=== PATIENT | male | born 1945 | race Caucasian/White ===

== ENCOUNTER 2018-09-24 11:58 | Inpatient (IN) | payer MEDICARE ==
[~2018-09-24] VITALS: Ht 190.5 cm; Wt 134.8 kg
[2018-10-04 06:44] VITALS: BP 114/73
== END 2018-10-04 12:00 | disposition home or self-care (01) | DRG 470 ==
LOC: ORIP 11:58 → UNDOADMIN 11:58 → ORIP 10-02 10:24 → 4NOR 10-02 14:35
PROVIDERS: ADMIT Orthopaedic Surgery; ATTEND Orthopaedic Surgery
PROC: 0SRB02A Replacement of Left Hip Joint with Metal on Polyethylene Synthetic Substitute, Uncemented, Open Approach (ICD-10-PCS; principal; 2018-10-02)
DX: M16.12 Unilateral primary osteoarthritis, left hip (principal); I10 Essential (primary) hypertension; I48.0 Paroxysmal atrial fibrillation; J31.0 Chronic rhinitis; I35.0 Nonrheumatic aortic (valve) stenosis; M43.10 Spondylolisthesis, site unspecified; Z86.73 Personal history of transient ischemic attack (TIA), and cerebral infarction without residual deficits; Z98.41 Cataract extraction status, right eye; Z98.42 Cataract extraction status, left eye
CPT/HCPCS: 36415; 86850; 86900; C1713; G0378; J0171; J0690; J1170; J1885; J2250; J2274; J2405; J2704; J2795; J3010; J3370; C1776; J0330; J7120

== ENCOUNTER → 2018-09-24 | Outpatient (CLI) | payer MEDICARE ==
[~2018-09-24] MED LIST: AMLO-150 PO; CARV6.2512 PO; DRON400T PO; FLUT9.9S NS; METH500T7 PO; OMEP20TA62 PO; OXYC1TAB7 PO; PRAV20TA2 PO; RIVA20TA PO; [UNRECOGNIZED DRUG - CODE] PO
[2018-09-24 12:39] LABS: MICROSCOPIC NOT IND
[2018-09-24 12:44] LABS: CULTURE INDICATED? NO
[2018-09-24 13:28] LABS: BASOPHILS # (AUTO) 0.07 x10^3/uL (0-0.1); BASOPHILS % (AUTO) 1 % (0-1); EOSINOPHILS # (AUTO) 0.28 x10^3/uL (0-0.4); EOSINOPHILS % (AUTO) 3 % (1-7); LYMPHOCYTES # (AUTO) 2.24 x10^3/uL (1-3.4); LYMPHOCYTES % (AUTO) 24 % (22-44); MD NO; MEAN CORPUSCULAR HEMOGLOBIN 31.2 pg (27.5-34.5); MEAN CORPUSCULAR HGB CONC 32.7 g/dL (33.2-36.2); MEAN CORPUSCULAR VOLUME 95.4 fL (81-97); MEAN PLATELET VOLUME 6.9 fL (7.4-10.4); MONOCYTES # (AUTO) 0.88 x10^3/uL (0.2-0.8); MONOCYTES % (AUTO) 10 % (2-9); NEUTROPHILS % (AUTO) 63 % (42-75); PLATELET COUNT 308 x10^3/uL (130-400); RED BLOOD COUNT 4.83 x10^6/uL (4.38-5.82); RED CELL DISTRIBUTION WIDTH 12.9 % (9.4-14.8)
[2018-09-24 13:40] LABS: ALANINE AMINOTRANSFERASE 21 U/L (12-78); ALBUMIN 3.7 g/dL (3.4-5.0); ANION GAP 8 mmol/L (5-15); CALCIUM 8.9 mg/dL (8.5-10.1); CHLORIDE 110 mmol/L (98-107); CREATININE 0.97 mg/dL (0.7-1.3)
[2018-09-24 13:42] LABS: ALKALINE PHOSPHATASE 78 U/L (45-117); TOTAL PROTEIN 7.2 g/dL (6.4-8.2)
== END | disposition home or self-care (01) ==
LOC: STAR 11:53
PROVIDERS: ATTEND Orthopaedic Surgery
DX: Z01.818 Encounter for other preprocedural examination (principal); M25.552 Pain in left hip; I44.0 Atrioventricular block, first degree
CPT/HCPCS: 36415; 80053; 81003; 85025; 87081; 93005